=== PATIENT | female | born 1970 ===

== ENCOUNTER 2021-09-07 06:45 | Day surgery (SDC) | payer OTHER ==
[2021-09-07] MEDS ORDERED: NAPR500T14 PO (15:29)
[2021-09-07] MEDS ORDERED: MORGIDOX100 MG PO (15:29)
== END 2021-09-07 19:00 | disposition home or self-care (01) ==
LOC: CIR.AMB 06:45
PROVIDERS: ATTEND Obstetrics & Gynecology
DX: D25.0 Submucous leiomyoma of uterus (principal); N84.0 Polyp of corpus uteri